=== PATIENT | female | born 1960 | race Caucasian/White ===

== ENCOUNTER → 2020-12-09 07:56 | Outpatient (CLI) | payer OTHER, SELFPAY ==
[2020-12-09] MEDS: COVID-19 VACC #1, MRNA(MOD) 100 MCG/0.5 ML VIAL IM (08:04)
== END ==
PROVIDERS: Visit Provider Internal Medicine
DX: Z23 Encounter for immunization (principal)
CPT/HCPCS: 0011A; 91301

== ENCOUNTER 2020-12-28 16:50 | Emergency (ER) | payer OTHER, SELFPAY ==
[2020-12-28 17:00] VITALS: BP 178/82; PULSE 120; RESP 16; TEMP 36.8; O2SAT 98; BMI 25.0
[2020-12-28 17:09] VITALS: PULSE 99
--- NOTE | 2020-12-28 17:15 | ED.EXTPRO ---
HPI - Extremity Problem General Chief complaint: Extremity Problem,Nontraumatic Stated complaint: TIGHTNESS OF LEFT LEG Time Seen by Provider: 12/28/20 16:58 Source: patient Mode of arrival: Ambulatory Limitations: no limitations History of Present Illness HPI Narrative: Patient is a 60-year-old female here for evaluation of left lower extremity swelling. She states that she started noticing the swelling approximately 1 week ago and has continued since then. She does have some bruising on the inside of her leg which has developed during this time as well. No chest pain. No shortness of breath. Has never had any swelling like this in the past. No trauma. She states that it does feel ?tight? after she has been sitting for a period of time but then after she is up and walking the seems to improve. Minimal discomfort. She does have multiple autoimmune disorders and is under the care of a compensation expert. Related Data Allergies Allergy/AdvReac Type Severity Reaction Status Date / Time No Known Drug Allergies Allergy Verified 12/28/20 17:00 Review of Systems Constitutional Constitutional: Denies fever(s) Cardiovascular Cardiovascular: Denies chest pain and Denies dyspnea Respiratory Respiratory: Denies dyspnea Gastrointestinal Gastrointestinal: Denies abdominal pain Musculoskeletal Comments: Left lower leg swelling Integumentary/Breasts Comments: Bruising on the inside of left flank Neurologic Neurologic: Reports system reviewed and no additional complaints, except as documented Hematologic/Lymphatic On Anticoagulants: No Allergic/Immunologic Allergic/Immunologic: Reports system reviewed and no additional complaints, except as documented Patient History Medical History Anti-phospholipid syndrome Lupus Raynaud's disease Social History Smoking Status: Never smoker Smoking Status: Never smoker Substance Use Type: does not use Exam Initial Vital Signs Initial Vital Signs: Vital Signs Temperature 98.2 F 12/28/20 17:00 Pulse Rate 120 H 12/28/20 17:00 Respiratory Rate 16 12/28/20 17:00 Blood Pressure 178/82 H 12/28/20 17:00 Pulse Oximetry 98 12/28/20 17:00 Const General: cooperative and comfortable Limitations: mental status not altered HENMT Head: normal to inspection and normocephalic Resp Effort & Inspection: normal respiratory effort Cardio Rate: regular rate Pulses: dorsalis pedis present on the left Skin Other: Patient has a bruise on the lateral aspect of the lower leg mid tibia. She states this is from a trauma where she hit her leg. She does have bruising on the medial aspect that she states. Sometime than the past week. Neuro General: patient alert, patient awake and patient oriented x3 Cognition: normal cognition Speech: speech normal Extrem Other: Patient does have swelling from the ankle to just proximal to the knee on the left. Psych Appearance: grossly normal and well kempt Course Orders Ordered: ED Orders 12/28/20 17:16 [facility] venous low extrem lt Stat 12/28/20 17:30 Basic Metabolic Panel Stat Complete Blood Count AUTO DIFF Stat NT-proBNP (BNP-Adult 18+) Stat Vital Signs Vital signs: Vital Signs - 8 hr 12/28/20 17:00 12/28/20 17:09 Temperature 98.2 F Pulse Rate 120 H 99 H Respiratory Rate 16 Blood Pressure 178/82 H Pulse Oximetry 98 MDM - Extremity (Nontraumatic) Lab Data Result diagrams: 12/28/20 17:30 12/28/20 17:30 Labs: Lab Results 12/28/20 12/28/20 Range/Units 17:30 17:30 WBC 4.8 (4.5-11.0) X10^3/uL RBC 4.14 (4.0-5.2) X10^6/uL Hgb 12.8 (12.0-16.0) g/dL Hct 38.1 (36-46) % MCV 91.9 (80-100) fL MCH 31.0 (26-34) PG MCHC 33.8 (30-36) % RDW 12.5 (11.6-14.8) % Plt Count 198 (150-400) X10^3/uL Neut % (Auto) 50.8 (50-75) % Lymph % (Auto) 37.0 (25-40) % Posey % (Auto) 9.4 (3-14) % Eos % (Auto) 1.8 L (2-4) % Baso % (Auto) 1.0 (0-2) % Neut # (Auto) 2400 (6275-4863) /uL Lymph # (Auto) 1800 (6895-2943) /uL Posey # (Auto) 400 (0-900) /uL Eos # (Auto) 100 (0-450) /uL Baso # (Auto) 0 (0-100) /uL Sodium 137 (137-145) mmol/L Potassium 3.4 (3.4-5.1) mmol/L Chloride 107 (98-107) mmol/L Carbon Dioxide 21 L (22-32) mmol/L BUN 19 H (7-17) mg/dL Creatinine 0.83 (0.52-1.04) mg/dL Estimated GFR > 60.0 (>60) mL/min BUN/Creatinine Ratio 22.9 H (6-22) Glucose 116 H (80-110) mg/dL Calcium 9.2 (8.4-10.2) mg/dL NT-Pro-B Natriuret Pep 196 H (<125) pg/mL Imaging Data US - DVT: Radiologist's Impression: [address] [id number] ReportSigned Patient: Gracia Roa#: [id number]: 8Acct:[id number]/Sex: 60 / FDate of Service: 12/28/20Loc: EDAccession Number: [id number] Procedure: US periph venous low extrem lt Ordering Provider: William Portillo D.O. PROCEDURE: US PERIPH VENOUS LOW EXTREM LT INDICATIONS: Swelling eval for DVT TECHNIQUE: Real-time imaging, as well as color and pulse Doppler interrogation, were performed of the lower extremity deep veins from the inguinal ligament to the popliteal fossa. COMPARISON: None. FINDINGS: The common femoral, femoral and popliteal veins are normally compressible, and free of intraluminal thrombus. Color and pulse Doppler demonstrate normal phasic intraluminal flow. There is normal augmentation response to distal compression maneuver. A presumed Aldana's cyst can be seen that measures 2.2 x 0.8 x 1.3 cm. IMPRESSION: Negative for deep venous thrombosis. Dictated by: Amador Richard M.D. on 12/28/2020 at 16:56 Approved by: Amador Richard M.D. on 12/28/2020 at 16:57 [facility] Narrative Medical decision making narrative: Patient is neurovascular intact. No chest pain. No shortness of breath. Does have isolated left lower extremity swelling. There is no signs of any infection. DVT ultrasound is negative. She is not clinically in heart failure. Normal BNP. Kidney functions unremarkable. Unsure the exact etiology however does not appear to be an infectious/emergent/urgent issue. We did discuss conservative measures which include keeping her leg elevated and compression stockings. She will contact her primary provider for a follow-up. She expressed understanding and agreement plan. Discharge Plan Departure Patient Disposition: Home Clinical Impression: Lower extremity edema Instructions: DI for Peripheral Edema-Unilateral Activity Restrictions/Additional Instructions: I recommend that you keep your leg elevated as much as possible. Consider using compression stockings. Contact your primary provider for a follow-up to discuss further workup/referrals. Return to the emergency department for any new or worsening symptoms Referrals: Bryanna Perez MD [Primary Care Provider] -
[2020-12-28 17:38] LABS: Add Manual Diff / Slide Review NO; Basophils Absolute Auto 0 /uL (0-100); Eosinophils Absolute Auto 100 /uL (0-450); Eosinophils Percent Auto 1.8 % (2-4); Hematocrit 38.1 % (36-46); Hemoglobin 12.8 g/dL (12.0-16.0); Lymphocytes Absolute Auto 1800 /uL (1100-4500); Mean Corpuscular HGB Conc 33.8 % (30-36); Mean Corpuscular Volume 91.9 fL (80-100); Monocytes Absolute Auto 400 /uL (0-900); Monocytes Percent Auto 9.4 % (3-14); Neutrophils Absolute Auto 2400 /uL (1500-7000); Neutrophils Percent Auto 50.8 % (50-75); Platelet Count 198 X10^3/uL (150-400); Red Blood Cell Count 4.14 X10^6/uL (4.0-5.2); Red Cell Distribution Width 12.5 % (11.6-14.8); White Blood Cell Count 4.8 X10^3/uL (4.5-11.0)
[2020-12-28 17:49] LABS: BUN Creatinine Ratio 22.9 (6-22); Blood Urea Nitrogen 19 mg/dL (7-17); Calcium 9.2 mg/dL (8.4-10.2); Carbon Dioxide 21 mmol/L (22-32); Chloride 107 mmol/L (98-107); Estimated Glomerular Filt Rate > 60.0 mL/min (>60); Glucose 116 mg/dL (80-110); HEMOLYSIS 17 (0-50); Potassium 3.4 mmol/L (3.4-5.1); Sodium 137 mmol/L (137-145)
[2020-12-28 17:58] LABS: NT-proBNP (BNP-Adult 18+) 196 pg/mL (<125)
[2020-12-28 18:16] VITALS: BP 159/72; PULSE 86
== END 2020-12-28 18:17 | disposition home or self-care (01) ==
PROVIDERS: Emergency Provider Emergency Medicine; PCP Internal Medicine
DX: R60.0 Localized edema (principal)
CPT/HCPCS: 36415; 80048; 83880; 85025; 93971; 99283; 99284

== ENCOUNTER → 2021-01-07 08:03 | Outpatient (CLI) | payer OTHER, SELFPAY ==
[2021-01-07] MEDS: COVID-19 VACC #2, MRNA(MOD) 100 MCG/0.5 ML VIAL IM (08:15)
== END ==
PROVIDERS: PCP Internal Medicine; Visit Provider Internal Medicine
DX: Z23 Encounter for immunization (principal)
CPT/HCPCS: 0012A; 91301